=== PATIENT | female | born 1980 ===

== ENCOUNTER 2019-05-20 08:42 | Emergency (ER) | payer OTHER ==
--- NOTE | 2019-05-20 08:44 | UC ---
Lower Extremity/Ankle HPI - HPI Summary HPI Summary: 39 yo female presents with LEFT ankle pain. She tells me that on 05/15/19 she was walking her dogs and stepped on a tree stump that was hidden by tall grass - inverted her left ankle. Had immediate pain, but was able to ambulate. Since that time she has had some pain and swelling in the left ankle that has not improved fully. She is ambulatory without assistance. Denies numbness or tingling - History of Current Complaint Stated Complaint: ANKLE INJURY Time Seen by Provider: 05/20/19 08:44 Hx Obtained From: Patient Onset/Duration: Sudden Onset Severity Initially: Moderate Severity Currently: Mild Pain Intensity: 3 Pain Scale Used: 0-10 Numeric Aggravating Factor(s): Standing, Ambulation Alleviating Factor(s): Rest, Elevation Able to Bear Weight: Yes - Allergies/Home Medications Allergies/Adverse Reactions: Allergies Allergy/AdvReac Type Severity Reaction Status Date / Time No Known Allergies Allergy Verified 05/20/19 08:55 Home Medications: Home Medications Labetalol TAB* [Trandate TAB*] 100 mg PO DAILY 05/20/19 [History Confirmed 05/20] Sertraline* [Zoloft*] 50 g PO DAILY 05/20/19 [History Confirmed 05/20/19] PMH/Surg Hx/FS Hx/Imm Hx Cardiovascular History: Hypertension Psychological History: Anxiety, Depression - Surgical History Surgical History: None - Family History Known Family History: Positive: Hypertension - Social History Occupation: Employed Full-time Lives: With Family Alcohol Use: Occasionally Substance Use Type: None Smoking Status (MU): Never Smoked Tobacco Review of Systems All Other Systems Reviewed And Are Negative: Yes Constitutional: Positive: Negative Skin: Positive: Negative Respiratory: Positive: Negative Cardiovascular: Positive: Negative Neurovascular: Positive: Negative Musculoskeletal: Positive: Other: - Left ankle pain Neurological: Positive: Negative Psychological: Positive: Negative Physical Exam - Summary Physical Exam Summary: GENERAL: NAD. WDWN. No pain distress. SKIN: No rashes, sores, lesions, or open wounds. CHEST: No accessory muscle use. Breathing comfortably and in no distress. CV: Pulses intact PT and DP. Cap refill <2seconds MSK: LEFT ANKLE: Mild TTP about ATFL and lateral malleolus with mild edema. FROM. Strength 5/5. Negative talar tilt. No increased laxity. NEURO: Alert. Sensations intact and symmetric B/L LEs PSYCH: Age appropriate behavior. Triage Information Reviewed: Yes Vital Signs: Vital Signs: Temp Pulse Resp BP Pulse Ox 98.6 F 68 18 118/81 99 05/20/19 08:49 05/20/19 08:49 05/20/19 08:49 05/20/19 08:49 05/20/19 08:49 Vital Signs Reviewed: Yes Lower Extremity Course/Dx - Course Course Of Treatment: XR: IMPRESSION: SOFT TISSUE SWELLING. NO ACUTE OSSEOUS INJURY. IF SYMPTOMS PERSIST, RECOMMEND REPEAT IMAGING. Discussed results with pt. Advised to continue RICE therapy. If symptoms do not improve after a full 7-10 days to f/u with Orthopedics for further eval - Differential Dx/Diagnosis Provider Diagnosis: Ankle sprain Discharge - Sign-Out/Discharge Documenting (check all that apply): Patient Departure All imaging exams completed and their final reports reviewed: Yes - Discharge Plan Condition: Stable Disposition: HOME Patient Education Materials: Ankle Sprain (ED) Referrals: No Primary Care Phys,NOPCP [Primary Care Provider] - Garrick Quinteros MD [Medical Doctor] - If Needed Additional Instructions: If you develop a fever, shortness of breath, chest pain, new or worsening symptoms - please call your PCP or go to the ED immediately. Your X-Ray today was normal and did not show a fracture. Continue to rest and elevate your ankle. Given your continued swelling and discomfort - if your ankle does not improve in 7-10 days total, please call Orthopedics at the number below for further evaluation - Billing Disposition and Condition Condition: STABLE Disposition: Home
== END 2019-05-20 09:20 | disposition home or self-care (01) ==
LOC: UCEAST 08:42
DX: S93.402A Sprain of unspecified ligament of left ankle, initial encounter (principal); W22.09XA Striking against other stationary object, initial encounter; Y93.K1 Activity, walking an animal; Y92.9 Unspecified place or not applicable; Y99.8 Other external cause status; I10 Essential (primary) hypertension; F41.9 Anxiety disorder, unspecified; F32.9 Major depressive disorder, single episode, unspecified
CPT/HCPCS: 99201; G0463